=== PATIENT | male | born 1995 | race Caucasian/White ===

== ENCOUNTER 2017-06-14 15:13 | Emergency (ER) | payer SELFPAY ==
[2017-06-14 15:51] VITALS: BP 124/77
[2017-06-14] MEDS ORDERED: LIDOCAINE 1% INJ (10 MG/ML) 10 ML MDV INJ ONE (16:12)
[2017-06-14] MEDS ORDERED: MAG HYDROX/AL HYDROX/SIMETH SUSP 30 ML UDCUP PO ONE (16:12)
[2017-06-14] MEDS ORDERED: NORMAL SALINE 1000 ML 1,000 ML IV ONE (16:12)
[2017-06-14] MEDS ORDERED: ONDANSETRON 4 MG TAB.RAPDIS PO ONE (16:12)
--- NOTE | 2017-06-14 16:13 | ER Document Report ---
ED Medical Screen (RME) - General TRAVEL OUTSIDE OF THE [place] IN LAST 30 DAYS: No <RHIANNA MCGRAW - Last Filed: 06/14/17 16:13> <OSWALDO KRAMER - Last Filed: 06/14/17 20:12> - General Chief Complaint: Vomiting Stated Complaint: VOMITING BLOOD Time Seen by Provider: 06/14/17 16:06 Notes: 22-year-old male patient reports waking up about 3 AM with reflux and heartburn, . He tried to drink some water and then vomited and has continued to vomit. He has vomited 7-8 times a day. He had diarrhea once. At this time he has diffuse abdominal pain and epigastric tenderness and right and left lower quadrant abdominal tenderness. He is somewhat tachycardic. I have greeted and performed a rapid initial assessment of this patient. A comprehensive ED assessment and evaluation of the patient, analysis of test results and completion of the medical decision making process will be conducted by additional ED providers. (RHIANNA MCGRAW) - Related Data Allergies/Adverse Reactions: No Known Allergies Allergy (Verified 06/14/17 15:14) Past Medical History - Social History Frequency of alcohol use: Occasional Drug Abuse: None Pulmonary Medical History: Reports: Hx Asthma - Sports Induced Renal/ Medical History: Denies: Hx Peritoneal Dialysis Past Surgical History: Reports: Hx Myringotomy - child hoood - Immunizations Hx Diphtheria, Pertussis, Tetanus Vaccination: Yes <RHIANNA MCGRAW - Last Filed: 06/14/17 16:13> - Vital signs Vitals: Temp Pulse Resp BP Pulse Ox 98.8 F 128 H 20 124/77 99 06/14/17 15:49 06/14/17 15:49 06/14/17 15:49 06/14/17 15:49 06/14/17 15:49 Course - Laboratory Result Diagrams: 06/14/17 16:32 06/14/17 16:32 <OSWALDO KRAMER - Last Filed: 06/14/17 20:12> - Vital Signs Vital signs: Temp Pulse Resp BP Pulse Ox 98.8 F 128 H 20 124/77 99 06/14/17 15:49 06/14/17 15:49 06/14/17 15:49 06/14/17 15:49 12/31/17 15:49 - Laboratory Laboratory results interpreted by me: 06/14/17 06/14/17 16:32 16:32 WBC 13.7 H RBC 6.09 H Hgb 18.6 H Hct 55.0 H Seg Neuts % (Manual) 81 H Lymphocytes % (Manual) 5 L Abs Neuts (Manual) 11.6 H Carbon Dioxide 33 H Doctor's Discharge <RHIANNA MCGRAW - Last Filed: 06/14/17 16:13> <OSWALDO KRAMER - Last Filed: 06/14/17 20:12> - Discharge Clinical Impression: Gastroenteritis, Dehydration Condition: Stable Disposition: HOME, SELF-CARE Instructions: Antinausea Medication ([facility]), Clear Liquid Diet ([facility]), Gastroenteritis (adult) ([facility]), Intravenous (IV) Fluids ([facility]) Additional Instructions: CLEAR LIQUID DIET UNTIL APPETITE RETURNS, THEN GRADUALLY ADVANCE DIET. YOU MAY TAKE ZOFRAN DIRECTED, IF NEEDED FOR NAUSEA CONTROL. FOLLOW UP WITH YOUR PRIMARY CARE PROVIDER OR RETURN TO E.R. IF PROBLEMS. Prescriptions: Ondansetron [Zofran Odt 4 mg Tablet] 1 - 2 tab PO Q4H #10 tab.jana
[2017-06-14] MEDS ORDERED: LIDOCAINE 2% VISCOUS SOLN 20 ML UDCUP PO ONE (16:39)
[2017-06-14] MEDS ORDERED: LIDOCAINE 1% INJ-PF (10 MG/ML) 30 ML SDV INJ ONE (16:45)
[2017-06-14 16:51] LABS: APPEARANCE,URINE CLEAR; BILIRUBIN,URINE NEGATIVE (NEGATIVE); COLOR,URINE YELLOW; GLUCOSE, URINE NEGATIVE (NEGATIVE); KETONES,URINE NEGATIVE (NEGATIVE); LEUKOCYTE ESTERASE,URINE NEGATIVE (NEGATIVE); NITRITE,URINE NEGATIVE (NEGATIVE); PROTEIN,URINE NEGATIVE (NEGATIVE); URINE SPECIFIC GRAVITY 1.019; UROBILINOGEN,URINE NEGATIVE mg/dL (<2.0)
[2017-06-14 17:01] LABS: HEMOGLOBIN 18.6 g/dL (13.5-17.0); MEAN CORPUSCULAR HEMOGLOBIN 30.6 pg (27.0-33.4); MEAN CORPUSCULAR HGB CONC 33.9 g/dL (32.0-36.0); MEAN CORPUSCULAR VOLUME 90 fl (80-97); PLATELET COUNT 220 10^3/uL (150-450); RED BLOOD COUNT 6.09 10^6/uL (4.35-5.55); WHITE BLOOD COUNT 13.7 10^3/uL (4.0-10.5)
[2017-06-14 17:06] LABS: ALANINE AMINOTRANSFERASE 43 U/L (21-72); ALBUMIN 4.5 g/dL (3.5-5.0); ALKALINE PHOSPHATASE 53 U/L (38-126); ANION GAP 8 (5-19); ASPARTATE AMINO TRANSFERASE 28 U/L (17-59); BILIRUBIN,DIRECT 0.3 mg/dL (0.0-0.4); BILIRUBIN,TOTAL 0.8 mg/dL (0.2-1.3); BLOOD UREA NITROGEN 14 mg/dL (7-20); CALCIUM 10.1 mg/dL (8.4-10.2); CARBON DIOXIDE 33 mmol/L (22-30); CHLORIDE 100 mmol/L (98-107); GLUCOSE 104 mg/dL (75-110); LIPASE 51.6 U/L (23-300); POTASSIUM 4.4 mmol/L (3.6-5.0); TOTAL PROTEIN 7.4 g/dL (6.3-8.2)
[2017-06-14 17:32] LABS: ABSOLUTE LYMPHOCYTES# (MANUAL) 1.2 10^3/uL (0.5-4.7); ABSOLUTE MONOCYTES # (MANUAL) 0.7 10^3/uL (0.1-1.4); ABSOLUTE NEUTROPHILS# (MANUAL) 11.6 10^3/uL (1.7-8.2); BAND NEUTROPHILS % (MANUAL) 4 % (3-5); BASOPHILS % (MANUAL) 0 % (0-2); EOSINOPHILS % (MANUAL) 1 % (0-6); LYMPHOCYTES % (MANUAL) 5 % (13-45); MONOCYTES % (MANUAL) 5 % (3-13); PLATELET COMMENT ADEQUATE; SEGMENTED NEUTROPHILS % (MAN) 81 % (42-78); TOTAL CELLS COUNTED 100; TOXIC VACUOLATION PRESENT
[2017-06-14] MEDS ORDERED: DEXTROSE 5%-LACTATED RINGERS 1,000 ML IV ONE (17:37)
--- NOTE | 2017-06-14 18:55 | ER Document Report ---
ED GI/ - General Chief Complaint: Vomiting Stated Complaint: VOMITING BLOOD Time Seen by Provider: 06/14/17 16:06 Mode of Arrival: Ambulatory Information source: Patient TRAVEL OUTSIDE OF THE [place] IN LAST 30 DAYS: No - HPI Patient complains to provider of: Vomiting Onset: This morning - 3 AM Timing/Duration: Sudden Quality of pain: Cramping Severity at maximum: Severe Severity in ED: Mild Context: Bad food - MAYBE Location: Epigastric, LLQ, RLQ Associated symptoms: Blood in emesis, Diarrhea, Nausea, Vomiting. denies: Chills, Fever Exacerbated by: Denies Relieved by: Denies Similar symptoms previously: No Recently seen / treated by doctor: No - Related Data Allergies/Adverse Reactions: No Known Allergies Allergy (Verified 06/14/17 15:14) Past Medical History - General Information source: Patient - Social History Smoking Status: Current Every Day Smoker Cigarette use (# per day): Yes Chew tobacco use (# tins/day): No Frequency of alcohol use: Occasional - LAST 2 d AGO Drug Abuse: None Lives with: Family Family History: Reviewed & Not Pertinent Patient has suicidal ideation: No Patient has homicidal ideation: No - Past Medical History Cardiac Medical History: Reports: None Pulmonary Medical History: Reports: Hx Asthma - Sports Induced EENT Medical History: Reports: None Neurological Medical History: Reports: None Endocrine Medical History: Reports: None Renal/ Medical History: Reports: None. Denies: Hx Peritoneal Dialysis Malignancy Medical History: Reports None GI Medical History: Reports: None. Denies: Hx Cirrhosis, Hx Gastritis, Hx Hepatitis, Hx Pancreatitis Musculoskeltal Medical History: Reports None Psychiatric Medical History: Reports: None Surgical Hx: Negative Past Surgical History: Reports: Hx Myringotomy - child hoood - Immunizations Hx Diphtheria, Pertussis, Tetanus Vaccination: Yes Review of Systems - Review of Systems Constitutional: Weakness EENT: No symptoms reported Cardiovascular: No symptoms reported Respiratory: No symptoms reported Gastrointestinal: See HPI Genitourinary: No symptoms reported Musculoskeletal: No symptoms reported Skin: No symptoms reported Neurological/Psychological: No symptoms reported Physical Exam - Vital signs Vitals: Temp Pulse Resp BP Pulse Ox 98.8 F 128 H 20 124/77 99 06/14/17 15:49 06/14/17 15:49 06/14/17 15:49 06/14/17 15:49 06/14/17 15:49 Interpretation: Tachycardic. No: Hypotensive, Hypertensive, Tachypneic - General General appearance: Appears well, Alert In distress: None - HEENT Head: Normocephalic Eyes: Normal. No: Pale conjunctiva Conjunctiva: Normal. No: Icteric Ears: Normal Mouth/Lips: Normal Mucous membranes: Dry Pharynx: Erythema - MILD, DIFFUSE Neck: Normal - Respiratory Respiratory status: No respiratory distress Breath sounds: Normal - Cardiovascular Rhythm: Regular, Tachycardia Heart sounds: Normal auscultation Murmur: No - Abdominal Inspection: Normal Distension: No distension Bowel sounds: Hypoactive Tenderness: Tender - MILD, GENERALIZED, MORE IN EPIGASTRIUM - Back Back: Normal - Extremities General upper extremity: Normal inspection General lower extremity: Normal inspection - Neurological Neuro grossly intact: Yes Cognition: Normal Orientation: AAOx4 - Psychological Associated symptoms: Normal affect, Normal mood - Skin Skin Temperature: Warm Skin Moisture: Dry Skin Color: Normal Skin Turgor: Elastic Course - Vital Signs Vital signs: Temp Pulse Resp BP Pulse Ox 98.8 F 128 H 20 124/77 99 06/14/17 15:49 06/14/17 15:49 06/14/17 15:49 06/14/17 15:49 06/14/17 15:49 - Laboratory Result Diagrams: 06/14/17 16:32 06/14/17 16:32 Laboratory results interpreted by me: 06/14/17 06/14/17 16:32 16:32 WBC 13.7 H RBC 6.09 H Hgb 18.6 H Hct 55.0 H Seg Neuts % (Manual) 81 H Lymphocytes % (Manual) 5 L Abs Neuts (Manual) 11.6 H Carbon Dioxide 33 H Discharge - Discharge Clinical Impression: Gastroenteritis, Dehydration Condition: Stable Disposition: HOME, SELF-CARE Instructions: Antinausea Medication ([facility]), Clear Liquid Diet ([facility]), Gastroenteritis (adult) ([facility]), Intravenous (IV) Fluids ([facility]) Additional Instructions: CLEAR LIQUID DIET UNTIL APPETITE RETURNS, THEN GRADUALLY ADVANCE DIET. YOU MAY TAKE ZOFRAN DIRECTED, IF NEEDED FOR NAUSEA CONTROL. FOLLOW UP WITH YOUR PRIMARY CARE PROVIDER OR RETURN TO E.R. IF PROBLEMS. Prescriptions: Ondansetron [Zofran Odt 4 mg Tablet] 1 - 2 tab PO Q4H #10 tab.rapdis
[2017-06-14] MEDS ORDERED: NORMAL SALINE 1000 ML 2,000 ML IV ONE (19:05)
[2017-06-14] MEDS ORDERED: ONDANSETRON ODT 4 MG TAB (6 TAB/ER DISP) PO PRN (20:03)
== END 2017-06-14 20:24 | disposition home or self-care (01) ==
LOC: ER 15:13
DX: K52.9 Noninfective gastroenteritis and colitis, unspecified (principal); E86.0 Dehydration; R10.13 Epigastric pain; R10.31 Right lower quadrant pain; R10.32 Left lower quadrant pain; R11.2 Nausea with vomiting, unspecified; F17.200 Nicotine dependence, unspecified, uncomplicated
CPT/HCPCS: 99284; 96360; 96361; 36415; 83690; 85025; 80053; 81001; S0119; J3490; J7030

== ENCOUNTER 2017-09-19 18:55 | Emergency (ER) | payer SELFPAY ==
[2017-09-19 19:06] VITALS: BP 135/82
[2017-09-19] MEDS ORDERED: ONDANSETRON 4 MG TAB.RAPDIS PO ONE (19:25)
--- NOTE | 2017-09-19 19:30 | ER Document Report ---
ED General - General Chief Complaint: Nausea/Vomiting/Diarrhea Stated Complaint: VOMITING Time Seen by Provider: 09/19/17 19:20 Notes: 22-year-old male here with complaints of nausea vomiting diarrhea ongoing for the past few hours. He states that the symptoms started after he ate an egg and cheese bagel that he made at home. No one else ate the same food. He has not tried taking anything for the symptoms. No known sick contacts. TRAVEL OUTSIDE OF THE [place] IN LAST 30 DAYS: No - Related Data Allergies/Adverse Reactions: No Known Allergies Allergy (Verified 09/19/17 19:00) Past Medical History - Social History Smoking Status: Current Every Day Smoker Chew tobacco use (# tins/day): No Frequency of alcohol use: Occasional Drug Abuse: Marijuana Family History: Reviewed & Not Pertinent Patient has suicidal ideation: No Patient has homicidal ideation: No Pulmonary Medical History: Reports: Hx Asthma - Sports Induced Renal/ Medical History: Denies: Hx Peritoneal Dialysis GI Medical History: Denies: Hx Cirrhosis, Hx Gastritis, Hx Hepatitis, Hx Pancreatitis Infectious Medical History: Denies: Hx Hepatitis Past Surgical History: Reports: Hx Myringotomy - child hoood - Immunizations Hx Diphtheria, Pertussis, Tetanus Vaccination: Yes Review of Systems - Review of Systems Notes: See history of present illness for pertinent positive review of systems; otherwise all review of systems have been reviewed and are negative Physical Exam - Vital signs Vitals: Temp Pulse Resp BP Pulse Ox 98.4 F 75 16 135/82 H 97 09/19/17 19:03 09/19/17 19:03 09/19/17 19:03 09/19/17 19:03 09/19/17 19:03 - Notes Notes: PHYSICAL EXAMINATION: GENERAL: Well-appearing and in no acute distress. HEAD: Atraumatic, normocephalic. EYES: Pupils equal round and reactive to light, extraocular movements intact, sclera anicteric, conjunctiva are normal. ENT: nares patent, oropharynx clear without exudates. Moist mucous membranes. NECK: Normal range of motion, supple without lymphadenopathy LUNGS: CTAB and equal. No wheezes rales or rhonchi. HEART: Regular rate and rhythm without murmurs ABDOMEN: Soft, no tenderness. No facial grimacing/wincing upon palpation. No guarding, no rebound. EXTREMITIES: Normal range of motion, no pitting edema. No cyanosis. NEUROLOGICAL: Cranial nerves grossly intact. Normal sensory/motor exams. PSYCH: Normal mood, normal affect. SKIN: Warm, Dry, normal turgor, no rashes or lesions noted Course - Re-evaluation Re-evalutation: 09/19/17 19:29 MEDICAL DECISION MAKING: Concern for gastrointestinal infection, most likely viral A dose of Zofran here and home with prescription for same Instructed patient on fever control with Tylenol and/or (if applicable) Motrin Also discussed keeping hydrated with water or Gatorade/Pedialyte Instructed follow-up PCP next day or few Patient understands and agrees to the plan of care - Vital Signs Vital signs: Temp Pulse Resp BP Pulse Ox 98.4 F 75 16 135/82 H 97 09/19/17 19:03 09/19/17 19:03 09/19/17 19:03 09/19/17 19:03 09/19/17 19:03 Discharge - Discharge Clinical Impression: Nausea vomiting and diarrhea Condition: Good Disposition: HOME, SELF-CARE Additional Instructions: You were seen in the emergency department at [facility]. You likely have a gastrointestinal infection, most likely viral. Use Motrin and/or Tylenol for fever control. You may use saline nasal spray for stuffy nose. Stay hydrated. Please followup with your primary physician in the next few days for further management/evaluation. Please return to the emergency department for worsening of symptoms or any symptom that you deem to be concerning or life-threatening. Thank you for allowing us to be part of your care. This is your school/work note for your Emergency Department evaluation today. Prescriptions: Ondansetron [Zofran Odt 4 mg Tablet] 1 tab PO Q4HP PRN #15 tab.rapdis PRN Reason: For Nausea/Vomiting
== END 2017-09-19 19:30 | disposition home or self-care (01) ==
LOC: ER 18:55
DX: R11.2 Nausea with vomiting, unspecified (principal); R19.7 Diarrhea, unspecified; F17.200 Nicotine dependence, unspecified, uncomplicated; J45.909 Unspecified asthma, uncomplicated
CPT/HCPCS: 99283; S0119

== ENCOUNTER 2018-02-05 16:09 | Emergency (ER) | payer SELFPAY ==
[2018-02-05 16:17] VITALS: BP 133/88
[2018-02-05] MEDS ORDERED: METOCLOPRAMIDE HCL ORAL SOLN 10 MG/10 ML UDCUP PO ONE (16:59)
[2018-02-05] MEDS ORDERED: LIDOCAINE 2% VISCOUS SOLN 20 ML UDCUP PO ONE (16:59)
[2018-02-05] MEDS ORDERED: MAG HYDROX/AL HYDROX/SIMETH SUSP 30 ML UDCUP PO ONE (16:59)
--- NOTE | 2018-02-05 17:10 | ER Document Report ---
ED Medical Screen (RME) - General Chief Complaint: Vomiting Stated Complaint: VOMITING, POSSIBLE RASH Time Seen by Provider: 02/05/18 16:59 Mode of Arrival: Ambulatory Information source: Patient TRAVEL OUTSIDE OF THE [place] IN LAST 30 DAYS: No - HPI Patient complains to provider of: Reflux Onset: Other - 22-year-old man presents with 2 days of acid taste in the base of his mouth as well as reflux symptoms which he says caused him to vomit twice with resultant red spots developing on his face. He denies any abdominal pain diarrhea constipation or dysuria fevers chills he does note that he generally has acid reflux at baseline he was drinking yesterday as well as being an every day smoker. Does not take anything to try and help with this he did take a little bit of Pepto-Bismol which is abnormal for him which offered only minimal relief. - Related Data Allergies/Adverse Reactions: No Known Allergies Allergy (Verified 09/19/17 19:00) Past Medical History - General Information source: Patient - Social History Cigarette use (# per day): Yes Chew tobacco use (# tins/day): Yes Frequency of alcohol use: Social Drug Abuse: Marijuana Pulmonary Medical History: Reports: Hx Asthma - Sports Induced Renal/ Medical History: Denies: Hx Peritoneal Dialysis GI Medical History: Denies: Hx Cirrhosis, Hx Gastritis, Hx Hepatitis, Hx Pancreatitis Infectious Medical History: Denies: Hx Hepatitis Past Surgical History: Reports: Hx Myringotomy - child hoood - Immunizations Hx Diphtheria, Pertussis, Tetanus Vaccination: Yes Review of Systems - Review of Systems -: Yes All other systems reviewed and negative Physical Exam - Vital signs Vitals: Temp Pulse Resp BP Pulse Ox 98.4 F 83 18 133/88 H 98 02/05/18 16:16 02/05/18 16:16 02/05/18 16:16 02/05/18 16:16 02/05/18 16:16 - General General appearance: Appears well In distress: None - HEENT Head: Normocephalic Eyes: Normal Conjunctiva: Normal Cornea: Normal Anterior chamber: Normal Fundascopic: Normal External canal: Normal Pharynx: Normal Neck: Normal - Respiratory Respiratory status: No respiratory distress Chest status: Nontender Breath sounds: Normal Chest palpation: Normal - Cardiovascular Rhythm: Regular Heart sounds: Normal auscultation Murmur: No - Abdominal Inspection: Normal Distension: No distension Tenderness: Nontender - Back Back: Normal - Extremities General upper extremity: Normal inspection General lower extremity: Normal inspection Shoulder: Normal - Neurological Neuro grossly intact: Yes Cognition: Normal Orientation: AAOx4 - Psychological Associated symptoms: Normal affect Course - Re-evaluation Re-evalutation: 02/05/18 19:32 22-year-old male who presents for evaluation of 2 episodes of emesis in the setting of having what he describes as reflux. On examination his abdominal exam is benign, he is well-appearing has been able to tolerate p.o. today. He is otherwise healthy he is an everyday drinker and an everyday smoker. Given that he does have a history of acid reflux this seems like an exacerbation of his underlying baseline reflux will attempt p.o. challenge following GI cocktail. Following administration of GI cocktail this patient's abdominal examination remained benign he was able to tolerate p.o. and remained well-appearing. He did have a few scattered petechiae on his face likely as a result of his retching do not believe this is indication at this time for further investigation. We will plan for this patient to undergo discharge with return precautions and a prescription for PPI. - Vital Signs Vital signs: Temp Pulse Resp BP Pulse Ox 98.4 F 83 18 133/88 H 98 02/05/18 16:16 02/05/18 16:16 02/05/18 16:16 02/05/18 16:16 02/05/18 16:16 Doctor's Discharge - Discharge Clinical Impression: Reflux esophagitis, Vomiting Condition: Good Disposition: HOME, SELF-CARE Instructions: Antacid Therapy ([facility]), Antinausea Medication ([facility]), Esophagitis ( [facility]) Prescriptions: Omeprazole Magnesium [Prilosec Otc] 40 mg PO BID #40 tablet. Ondansetron [Zofran Odt 4 mg Tablet] 1 - 2 tab PO Q4H PRN #15 tab.rapdis PRN Reason: For Nausea/Vomiting Forms: Smoking Cessation Education, Return to Work
== END 2018-02-05 19:45 | disposition home or self-care (01) ==
LOC: ER 16:09
DX: K21.0 Gastro-esophageal reflux disease with esophagitis (principal); R11.10 Vomiting, unspecified; R23.3 Spontaneous ecchymoses; F17.210 Nicotine dependence, cigarettes, uncomplicated; F12.10 Cannabis abuse, uncomplicated; J45.909 Unspecified asthma, uncomplicated
CPT/HCPCS: 99282; J3490

== ENCOUNTER 2018-03-20 00:24 | Emergency (ER) | payer SELFPAY ==
[2018-03-20 00:39] VITALS: BP 130/83
[2018-03-20] MEDS ORDERED: ACETAMINOPHEN 325 MG TABLET PO ONE (00:57)
[2018-03-20] MEDS ORDERED: IBUPROFEN 600 MG TABLET PO ONE (00:57)
--- NOTE | 2018-03-20 01:04 | ER Document Report ---
ED General - General Chief Complaint: Scrotal Pain, Acute Onset Stated Complaint: GROIN PAIN Time Seen by Provider: 03/20/18 00:52 Notes: Patient is a 22-year-old male without chronic medical problems who presents with bilateral testicular pain. Patient states that he was at work, took a corner too quickly and struck his testicles on a glass hernandez. This is apparently advised to hold glasses while they are being cleaned and a welt edge rounder. He describes a dull, throbbing, constant pain to his bilateral testicles. Nothing improves or worsens the pain. He states the pain was so severe initially that he almost passed out and has felt shaky since that time which is what prompted him to come to the emergency department for further assessment. No history of similar injury in the past. He has urinated has not noted any gross hematuria. Pain and symptoms have overall been improving since onset. TRAVEL OUTSIDE OF THE [place] IN LAST 30 DAYS: No - Related Data Allergies/Adverse Reactions: No Known Allergies Allergy (Verified 09/19/17 19:00) Past Medical History - General Information source: Patient - Social History Smoking Status: Current Every Day Smoker Frequency of alcohol use: Occasional Drug Abuse: None Family History: Reviewed & Not Pertinent Pulmonary Medical History: Reports: Hx Asthma - Sports Induced Renal/ Medical History: Denies: Hx Peritoneal Dialysis GI Medical History: Denies: Hx Cirrhosis, Hx Gastritis, Hx Hepatitis, Hx Pancreatitis Infectious Medical History: Denies: Hx Hepatitis Past Surgical History: Reports: Hx Myringotomy - child hoood - Immunizations Hx Diphtheria, Pertussis, Tetanus Vaccination: Yes Review of Systems - Review of Systems Notes: Constitutional: Negative for fever. HENT: Negative for sore throat. Eyes: Negative for visual changes. Cardiovascular: Negative for chest pain. Respiratory: Negative for shortness of breath. Gastrointestinal: Negative for abdominal pain, vomiting or diarrhea. Genitourinary: Positive for testicular pain Musculoskeletal: Negative for back pain. Skin: Negative for rash. Neurological: Negative for headaches, weakness or numbness. 10 point ROS negative except as marked above and in HPI. Physical Exam - Vital signs Vitals: Temp Pulse Resp BP Pulse Ox 98.8 F 93 18 130/83 H 98 03/20/18 00:37 03/20/18 00:37 03/20/18 00:37 03/20/18 00:37 03/20/18 00:37 Interpretation: Normal Notes: PHYSICAL EXAMINATION: GENERAL: Well-appearing, well-nourished and in no acute distress. HEAD: Atraumatic, normocephalic. EYES: Pupils equal round and reactive to light, extraocular movements intact, sclera anicteric, conjunctiva are normal. ENT: nares patent, oropharynx clear without exudates. Moist mucous membranes. NECK: Normal range of motion, supple without lymphadenopathy LUNGS: Breath sounds clear to auscultation bilaterally and equal. No wheezes rales or rhonchi. HEART: Regular rate and rhythm without murmurs ABDOMEN: Soft, nontender, normoactive bowel sounds. No guarding, no rebound. No masses appreciated. : Positive cremasteric reflex bilaterally, no swelling or edema of the scrotum. Mild pain to the testes bilaterally on palpation. No scrotal hematoma. No evidence of penile trauma. EXTREMITIES: Normal range of motion, no pitting or edema. No cyanosis. NEUROLOGICAL: No focal neurological deficits. Moves all extremities spontaneously and on command. PSYCH: Normal mood, normal affect. SKIN: Warm, Dry, normal turgor, no rashes or lesions noted. Course - Re-evaluation Re-evalutation: 03/20/18 01:14 Patient is a 22-year-old male presenting with testicular pain. Testicular exam without any obvious bruising, swelling or edema of the testes, epididymis or scrotum. No penile trauma or bruising. It appears that the patient likely had significant vagal response from a direct testicular traumatic events while at work. Scrotal ultrasound likewise without any evidence of scrotal or testicular hematoma or notable traumatic injury. At this time will discharge with return precautions and follow-up recommendations. Verbal discharge instructions given a the bedside and opportunity for questions given. Medication warnings reviewed. Patient is in agreement with this plan and has verbalized understanding of return precautions and the need for primary care follow-up in the next 24-72 hours. - Vital Signs Vital signs: Temp Pulse Resp BP Pulse Ox 98.8 F 93 18 130/83 H 98 03/20/18 00:37 03/20/18 00:37 03/20/18 00:37 03/20/18 00:37 03/20/18 00:37 - Diagnostic Test Radiology reviewed: Reports reviewed Discharge - Discharge Clinical Impression: Testicular/scrotal pain Condition: Good Disposition: HOME, SELF-CARE Additional Instructions: Your seen today for testicular pain after traumatic injury. Your ultrasound is normal as is your exam. Return if you have worsening pain, persistent vomiting , or any other symptoms that are worrisome to you.
--- NOTE | 2018-03-20 03:24 | RADIOLOGY REPORT (SQ) ---
EXAM DESCRIPTION: US SCROTUM COMPLETED DATE/TME: 03/20/2018 00:57 CLINICAL HISTORY: 22 years Male, testicular trauma COMPARISON: None. TECHNIQUE: Real-time sonographic images of the scrotal contents obtained using a linear multi hertz transducer. Color and spectral Doppler imaging was also obtained. FINDINGS: Testicles: The right testicle measures 5.0 x 4.0 x 2.3 cm. The left testicle measures 4.9 x 3.5 x 2.5 cm. No solid intratesticular mass identified. Homogenous echogenicity of the testicles. Epididymis: No abnormalities of the right epididymis. Small left epididymal cyst. Hydrocele: Small left hydrocele Blood flow:Normal arterial and venous blood flow identified bilaterally. Other:No additional findings. IMPRESSION: 1. Normal blood flow identified bilaterally. 2. Small left hydrocele. No traumatic parenchymal injury of the testicles identified.
== END 2018-03-20 03:43 | disposition home or self-care (01) ==
LOC: ER 00:24
DX: N50.82 Scrotal pain (principal); N50.812 Left testicular pain; N50.811 Right testicular pain; F17.200 Nicotine dependence, unspecified, uncomplicated; J45.909 Unspecified asthma, uncomplicated
CPT/HCPCS: 76870; 93976; 99284

== ENCOUNTER 2018-06-02 02:58 | Emergency (ER) | payer SELFPAY ==
[2018-06-02 03:13] VITALS: BP 114/66
[2018-06-02] MEDS ORDERED: ONDANSETRON HCL INJ/PF 4 MG/2 ML SDV IV ONE (03:29)
--- NOTE | 2018-06-02 03:30 | ER Document Report ---
ED General - General Chief Complaint: Nausea/Vomiting Stated Complaint: VOMITING Time Seen by Provider: 06/02/18 03:29 Notes: 23-year-old male to the emergency department by ambulance because he is vomiting. Patient states that he has been drinking beer all night. Cannot seem to stop vomiting. Denies any trauma. Denies any significant abdominal pain, chest pain or other issues at this time. TRAVEL OUTSIDE OF THE [place] IN LAST 30 DAYS: No - HPI Onset: Just prior to arrival Quality of pain: No pain Severity: Mild Pain Level: Denies Associated symptoms: None - Related Data Allergies/Adverse Reactions: No Known Allergies Allergy (Verified 09/19/17 19:00) Past Medical History - General Information source: Patient - Social History Smoking Status: Current Every Day Smoker Chew tobacco use (# tins/day): No Frequency of alcohol use: Heavy Drug Abuse: None Lives with: Family Family History: Reviewed & Not Pertinent Patient has suicidal ideation: No Patient has homicidal ideation: No Pulmonary Medical History: Reports: Hx Asthma - Sports Induced Renal/ Medical History: Denies: Hx Peritoneal Dialysis GI Medical History: Denies: Hx Cirrhosis, Hx Gastritis, Hx Hepatitis, Hx Pancreatitis Infectious Medical History: Denies: Hx Hepatitis Past Surgical History: Reports: Hx Myringotomy - child hoood - Immunizations Hx Diphtheria, Pertussis, Tetanus Vaccination: Yes Review of Systems - Review of Systems Notes: Constitutional: denies: Chills, Diaphoresis, Fever, Malaise, Weakness EENT: denies: Eye discharge, Blurred vision, Tearing, Double vision, Nose congestion, Nose discharge, Throat swelling, Mouth pain Cardiovascular: denies: Palpitations, Heart racing, Orthopnea, Dyspnea, Chest pain Respiratory: denies: Cough, Hurts to breathe, Wheezing, Shortness of breath Gastrointestinal: denies: Abdominal pain, Diarrhea, Black stools, bright red blood in stool. + for N/V Genitourinary: denies: Burning, Dysuria, Discharge, Frequency, Flank pain, Hematuria Musculoskeletal: denies: Joint pain, Joint swelling, Muscle pain, Muscle stiffness, back pain Hematologic/Lymphatic: denies: Anemia, Easy bleeding, Easy bruising, Blood clots Neurological/Psychological: denies: Confusion, Dementia, Depression, Loss of consciousness Skin: No lesions, no masses, no skin breakdown, no abscesses Physical Exam - Vital signs Vitals: Temp Pulse Resp BP Pulse Ox 98.1 F 74 18 114/66 99 06/02/18 03:05 06/02/18 03:05 06/02/18 03:05 06/02/18 03:05 06/02/18 03:05 Interpretation: Normal - General General appearance: Appears well, Alert - HEENT Head: Normocephalic, Atraumatic Eyes: Normal Pupils: PERRL - Respiratory Respiratory status: No respiratory distress Chest status: Nontender Breath sounds: Normal Chest palpation: Normal - Cardiovascular Rhythm: Regular Heart sounds: Normal auscultation Murmur: No - Abdominal Inspection: Normal Distension: No distension Bowel sounds: Normal Tenderness: Nontender Organomegaly: No organomegaly - Back Back: Normal, Nontender - Extremities General upper extremity: Normal inspection, Nontender, Normal color, Normal ROM, Normal temperature General lower extremity: Normal inspection, Nontender, Normal color, Normal ROM, Normal temperature, Normal weight bearing. No: Moiz's sign - Neurological Neuro grossly intact: Yes Cognition: Normal Orientation: AAOx4 [place] Coma Scale Eye Opening: Spontaneous [place] Coma Scale Verbal: Oriented [place] Coma Scale Motor: Obeys Commands Speech: Normal Motor strength normal: LUE, RUE, LLE, RLE Sensory: Normal - Psychological Associated symptoms: Normal affect, Normal mood - Skin Skin Temperature: Warm Skin Moisture: Dry Skin Color: Normal Course - Re-evaluation Re-evalutation: 06/02/18 03:53 Well-appearing male in no acute distress. Likely having some vomiting from the alcohol. We will get an alcohol level, give some IV fluids and reassess. 06/02/18 06:39 Patient has been resting comfortably. Alcohol level 150. Nothing further at this time. Will DC in stable condition. - Vital Signs Vital signs: Temp Pulse Resp BP Pulse Ox 98.1 F 74 18 114/66 99 06/02/18 03:05 06/02/18 03:05 06/02/18 03:05 06/02/18 03:05 06/02/18 03:05 Discharge - Discharge Clinical Impression: Intoxication Alcoholic gastritis Qualifiers: Chronicity: acute Gastritis bleeding: without bleeding Qualified Code(s): K29.20 - Alcoholic gastritis without bleeding Condition: Good Disposition: HOME, SELF-CARE Instructions: Acute Alcohol Intoxication ([facility]) Forms: Return to Work
[2018-06-02] MEDS: NORMAL SALINE 1000 ML 1,000 ML IV PRN ×2 (03:36→03:37)
[2018-06-02] MEDS ORDERED: FAMOTIDINE INJ/PF 20 MG/2 ML SDV IV ONE ×2 (03:53→03:57)
== END 2018-06-02 06:38 | disposition home or self-care (01) ==
LOC: ER 02:58
DX: K29.20 Alcoholic gastritis without bleeding (principal); F10.129 Alcohol abuse with intoxication, unspecified; Y90.6 Blood alcohol level of 120-199 mg/100 ml; R11.2 Nausea with vomiting, unspecified; F17.200 Nicotine dependence, unspecified, uncomplicated; J45.909 Unspecified asthma, uncomplicated; Z87.19 Personal history of other diseases of the digestive system
CPT/HCPCS: 99284; 96361; 96374; 96375; 36415; 80307; J2405; J7030; S0028

== ENCOUNTER 2018-06-20 18:06 | Emergency (ER) | payer SELFPAY ==
[2018-06-20] MEDS ORDERED: ACETAMINOPHEN 325 MG TABLET PO ONE (19:43)
[2018-06-20] MEDS ORDERED: ONDANSETRON 4 MG TAB.RAPDIS PO ONE (19:43)
--- NOTE | 2018-06-20 19:43 | ER Document Report ---
ED Medical Screen (RME) - General Chief Complaint: Nausea/Vomiting Stated Complaint: ABDOMINAL PAIN Time Seen by Provider: 06/20/18 19:42 Mode of Arrival: Ambulatory Information source: Patient TRAVEL OUTSIDE OF THE [place] IN LAST 30 DAYS: No - HPI Patient complains to provider of: Nausea and vomiting Onset: Other - This is a 22-year-old man that presents for evaluation of nausea and vomiting over the last day. He had a low-grade fever yesterday was burning upset while sitting at home but did not check his temperature at that time. Throughout probably twice was told by his work he needed to be seen by before he could come back to work. Denies any episodes of emesis today. Nothing is made his symptoms any better he is not take anything to try and help with the symptoms. - Related Data Allergies/Adverse Reactions: No Known Allergies Allergy (Verified 09/19/17 19:00) Past Medical History - General Information source: Patient - Social History Cigarette use (# per day): Yes Chew tobacco use (# tins/day): Yes Frequency of alcohol use: Occasional Drug Abuse: Marijuana Pulmonary Medical History: Reports: Hx Asthma - Sports Induced Renal/ Medical History: Denies: Hx Peritoneal Dialysis GI Medical History: Denies: Hx Cirrhosis, Hx Gastritis, Hx Hepatitis, Hx Pancreatitis Infectious Medical History: Denies: Hx Hepatitis Past Surgical History: Reports: Hx Myringotomy - child hoood - Immunizations Hx Diphtheria, Pertussis, Tetanus Vaccination: Yes Review of Systems - Review of Systems -: Yes All other systems reviewed and negative Physical Exam - Vital signs Vitals: Temp Pulse Resp BP Pulse Ox 98.8 F 86 16 134/80 H 97 06/20/18 18:11 06/20/18 18:11 06/20/18 18:11 06/20/18 18:11 06/20/18 18:11 Interpretation: Normal - General General appearance: Appears well, Alert - HEENT Head: Normocephalic, Atraumatic Eyes: Normal Pupils: PERRL - Respiratory Respiratory status: No respiratory distress Chest status: Nontender Breath sounds: Normal Chest palpation: Normal - Cardiovascular Rhythm: Regular Heart sounds: Normal auscultation Murmur: No - Abdominal Inspection: Normal Distension: No distension Bowel sounds: Normal Tenderness: Nontender Organomegaly: No organomegaly - Back Back: Normal, Nontender - Extremities General upper extremity: Normal inspection, Nontender, Normal color, Normal ROM, Normal temperature General lower extremity: Normal inspection, Nontender, Normal color, Normal ROM, Normal temperature, Normal weight bearing. No: Moiz's sign - Neurological Neuro grossly intact: Yes Cognition: Normal Orientation: AAOx4 [place] Coma Scale Eye Opening: Spontaneous [place] Coma Scale Verbal: Oriented [place] Coma Scale Motor: Obeys Commands [place] Coma Scale Total: 15 Speech: Normal Motor strength normal: LUE, RUE, LLE, RLE Sensory: Normal - Psychological Associated symptoms: Normal affect, Normal mood - Skin Skin Temperature: Warm Skin Moisture: Dry Skin Color: Normal Course - Re-evaluation Re-evalutation: 23 yo with nausea and vomiting who is improved today. He is well-appearing, has a benign abdominal examination states that he is feeling much much better already came only because he has C be seen for he can return to work. We will administer an antiemetic. Will p.o. challenge this patient. Following Zofran administration p.o. challenge and reassessment patient continues to have a benign abdominal examination. Because of his well appearance we will plan for discharge with return precautions. He was given smoking cessation counseling. - Vital Signs Vital signs: Temp Pulse Resp BP Pulse Ox 98.8 F 86 16 134/80 H 97 06/20/18 18:11 06/20/18 18:11 06/20/18 18:11 06/20/18 18:11 06/20/18 18:11 Doctor's Discharge - Discharge Clinical Impression: Nausea and vomiting Qualifiers: Vomiting type: unspecified Vomiting Intractability: unspecified Qualified Code(s): R11.2 - Nausea with vomiting, unspecified Condition: Good Disposition: HOME, SELF-CARE Instructions: Antinausea Medication ([facility]), Viral Syndrome ([facility]) Additional Instructions: You were seen today in the emergency department for your urine evaluation including a physical exam. I think that your illness is probably a viral illness. Make sure you are wearing something to cover your mouth in case you are having coughing, your throwing up you should not be handling food. You been given a prescription to help with nausea. Use the medication only as needed. Prescriptions: Ondansetron [Zofran Odt 4 mg Tablet] 1 - 2 tab PO Q4H PRN #15 tab.rapdis PRN Reason: For Nausea/Vomiting Forms: Return to Work
[2018-06-20 20:28] VITALS: BP 130/78
== END 2018-06-20 20:27 | disposition home or self-care (01) ==
LOC: ER 18:06
DX: R11.2 Nausea with vomiting, unspecified (principal); J45.909 Unspecified asthma, uncomplicated; Z72.0 Tobacco use; Z71.6 Tobacco abuse counseling
CPT/HCPCS: 99284; S0119

== ENCOUNTER 2019-07-27 07:32 | Emergency (ER) | payer SELFPAY ==
--- NOTE | 2019-07-27 10:30 | ER Document Report ---
HPI - HPI Patient complains to provider of: bilateral ear irritation Time Seen by Provider: 07/27/19 10:18 Onset: Other - one month Quality of pain: Achy Pain Level: Denies Context: 24-year-old male presents emergency department with complaints of bilateral ear irritation. He reports his ears were felt irritated for the past month. Clogged. He has been cleaning them with Q-tips. He noted some drainage after cleaning them with Q-tips. He reports he had tubes placed in his ears 3 times when he was growing up because he had such severe ear infections. He denies trauma. He denies fever vomiting diarrhea. Denies pain. Associated Symptoms: None Exacerbated by: Denies Relieved by: Denies Similar symptoms previously: No Recently seen / treated by doctor: No - CONSTITUTIONAL Constitutional: DENIES: Fever, Chills - EENT EENT: REPORTS: Ear Pain. DENIES: Sore Throat, Eye problems - NEURO Neurology: DENIES: Headache, Weakness, Vision blurred, Dizzinesss / Vertigo - CARDIOVASCULAR Cardiovascular: DENIES: Chest pain - RESPIRATORY Respiratory: DENIES: Trouble Breathing, Coughing - GASTROINTESTINAL Gastrointestinal: DENIES: Abdominal Pain, Black / Bloody Stools - URINARY Urinary: DENIES: Dysuria, Urgency, Frequency - REPRODUCTIVE Reproductive: DENIES: : - MUSCULOSKELETAL Musculoskeletal: DENIES: Extremity pain Past Medical History - General Information source: Patient - Social History Smoking Status: Current Every Day Smoker Cigarette use (# per day): Yes Frequency of alcohol use: None Drug Abuse: Marijuana Occupation: [employer] Family History: Reviewed & Not Pertinent Patient has suicidal ideation: No Patient has homicidal ideation: No Pulmonary Medical History: Reports: Hx Asthma - Sports Induced Renal/ Medical History: Denies: Hx Peritoneal Dialysis GI Medical History: Denies: Hx Cirrhosis, Hx Gastritis, Hx Hepatitis, Hx Pancreatitis Infectious Medical History: Denies: Hx Hepatitis Past Surgical History: Reports: Hx Myringotomy - child hoood - Immunizations Hx Diphtheria, Pertussis, Tetanus Vaccination: Yes Vertical Provider Document - CONSTITUTIONAL Agree With Documented VS: Yes Exam Limitations: No Limitations General Appearance: WD/WN, No Apparent Distress - INFECTION CONTROL TRAVEL OUTSIDE OF THE [place] IN LAST 30 DAYS: No - HEENT HEENT: Atraumatic, Normal ENT Exam, Normocephalic. negative: Conjuctival Injection, Tympanic Membrane Red, Tympanic Membrane Bulging - NECK Neck: Normal Inspection, Supple. negative: Lymphadenopathy-Left, Lymphadenopathy-Right - RESPIRATORY Respiratory: Breath Sounds Normal, No Respiratory Distress - CARDIOVASCULAR Cardiovascular: Regular Rate - MUSCULOSKELETAL/EXTREMETIES Musculoskeletal/Extremeties: WESLEY, YIMI - NEURO Level of Consciousness: Awake, Alert, Appropriate Motor/Sensory: No Motor Deficit - DERM Integumentary: Warm, Dry, No Rash Course - Re-evaluation Re-evalutation: 07/27/19 10:30 Bilateral ears with some wax but not impacted. No erythema no swelling no discharge. Patient was instructed on this. Instructed on ENT. He does not have insurance. He was instructed to follow-up with [facility] for evaluation and possibly referral to ENT. He was instructed to return here for severe pain or concerns. He verbalized understanding to all instructions. - Vital Signs Vital signs: Temp Pulse Resp BP Pulse Ox 97.9 F 79 18 140/93 H 97 07/27/19 07:36 07/27/19 07:36 07/27/19 07:36 07/27/19 07:36 07/27/19 07:36 Discharge - Discharge Clinical Impression: Irritation of both ears Condition: Stable Disposition: HOME, SELF-CARE Instructions: ENT, [facility] Additional Instructions: *You have been evaluated for bilateral ear irritation *Follow up with the [facility] within 1 week *Return to ED for worsening condition, changes, needs, fever ear pain, concerns Forms: Return to Work
[2019-07-27 10:47] VITALS: BP 146/90
== END 2019-07-27 10:44 | disposition home or self-care (01) ==
LOC: ER 07:32
DX: H92.03 Otalgia, bilateral (principal); F17.210 Nicotine dependence, cigarettes, uncomplicated

== ENCOUNTER 2020-01-03 12:18 | Emergency (ER) | payer OTHER ==
[2020-01-03 12:28] VITALS: BP 146/89
[2020-01-03] MEDS ORDERED: DIPH/PERTUSS(ACELL)/TETANUS VAC/PF 0.5 ML SYR (>=10YO) IM ONE (12:46)
[2020-01-03] MEDS ORDERED: LIDOCAINE 1%/EPINEPHRINE INJ 20 ML VIAL INJ ONE (12:46)
[2020-01-03] MEDS ORDERED: LIDOCAINE 4%/TETRACAINE 0.5%/EPI 0.18% 5 ML TOPICAL SOLN TOP ONE (12:51)
--- NOTE | 2020-01-03 12:51 | ER Document Report ---
HPI - HPI Time Seen by Provider: 01/03/20 12:41 Notes: 24-year-old male presents to the emergency room for evaluation of a laceration to his left calf that he accidentally sustained after his calf was caught on a nail coming out of a crawl space 2 hours ago. Unsure of his last tetanus. Denies any pain. No active bleeding. Able to walk on both legs without any issues. Able to bear full weight. Denies any numbness or tingling to area of injury. Denies any other area of injury. Is not on any blood thinners. Denies fevers, chills, chest pain,palpitations, shortness of breath, dyspnea, nausea, vomiting, diarrhea, abdominal pain, hematuria,blurred vision, double vision, loss of vision, speech changes, LH, dizziness, syncope, headaches, wheezing, ST, URI, neck pain, weakness, bowel or bladder dysfunction, saddle anesthesia, numbness or tingling in bilateral upper or lower extremities equally, muscle paralysis, weakness in bilateral upper or lower extremities equally or rash. Denies IV drug use. MEDICATIONS: I agree with the patient medications as charted by the RN. ALLERGIES: I agree with the allergies as charted by the RN. PAST MEDICAL HISTORY/PAST SURGICAL HISTORY: Reviewed and agree as charted by RN. SOCIAL HISTORY: Reviewed and agree as charted by RN. FAMILY HISTORY: No significant familial comorbid conditions directly related to patient complaint EXAM: Reviewed vital signs as charted by RN. REVIEW OF SYSTEMS:reviewed vital signs by RN CONSTITUTIONAL : Denies fever, chills, or sweats. Denies recent illness. EENT: Denies eye, ear, throat, or mouth pain or symptoms. Denies nasal or sinus congestion or discharge. Denies throat, tongue, or mouth swelling or difficulty swallowing. CARDIOVASCULAR: Denies chest pain. Denies palpitations or racing or irregular heart beat. Denies ankle edema. RESPIRATORY: Denies cough, cold, or chest congestion. Denies shortness of breath, difficulty breathing, or wheezing. GASTROINTESTINAL: Denies abdominal pain or distention. Denies nausea, vomiting, or diarrhea. Denies blood in vomitus, stools, or per rectum. Denies black, tarry stools. Denies constipation. GENITOURINARY: Denies difficulty urinating, painful urination, burning, frequency, blood in urine, or discharge. MUSCULOSKELETAL: Denies back or neck pain or stiffness. Denies joint pain or swelling. SKIN: reports left calf laceration. Denies rash, lesions or sores. HEMATOLOGIC : Denies easy bruising or bleeding. LYMPHATIC: Denies swollen, enlarged glands. NEUROLOGICAL: Denies confusion or altered mental status. Denies passing out or loss of consciousness. Denies dizziness or lightheadedness. Denies headache. Denies weakness or paralysis or loss of use of either side. Denies problems with gait or speech. Denies sensory loss, numbness, or tingling. Denies seizures. PSYCHIATRIC: Denies anxiety or stress. Denies depression, suicidal ideation, or homicidal ideation. ALL OTHER SYSTEMS REVIEWED AND NEGATIVE. Dictation was performed using [employer] voice recognition software PHYSICAL EXAMINATION: GENERAL: Well-appearing, well-nourished and in no acute distress. HEAD: Atraumatic, normocephalic. EYES: Pupils equal round and reactive to light, extraocular movements intact, sclera anicteric, conjunctiva are normal. ENT: Nares patent, oropharynx clear without exudates. Moist mucous membranes. NECK: Normal range of motion, supple without lymphadenopathy LUNGS: Breath sounds clear to auscultation bilaterally and equal. No wheezes rales or rhonchi. HEART: Regular rate and rhythm without murmurs ABDOMEN: Soft, nontender, nondistended abdomen. No guarding, no rebound. No masses appreciated. Musculoskeletal: Normal range of motion, no pitting or edema. No cyanosis. NEUROLOGICAL: Cranial nerves grossly intact. Normal speech, normal gait. Normal sensory, motor exams PSYCH: Normal mood, normal affect. SKIN: Warm, Dry, normal turgor, no rashes or lesions noted. Left posterior aspect of calf with a "V" laceration approximately 1 cm x 1 cm. negative efrain's sign. anterior and posterior drawer test negative.Dtr + 2 in BLE. Full motor and sensory function. distal pulses + 2 bilaterally and equally. Bilateral lower extremity without deformity or asymmetry. No STS or edema. No overlying erythema, warmth, discoloration. No lesions or break in the skin integrity. No evidence of compartment syndrome, lymphadenopathy, gangrene. No palpable cords or evidence of thrombophlebitis. - REPRODUCTIVE Reproductive: DENIES: : Past Medical History - General Information source: Patient - Social History Smoking Status: Unknown if Ever Smoked Family History: Reviewed & Not Pertinent Pulmonary Medical History: Reports: Hx Asthma - Sports Induced Renal/ Medical History: Denies: Hx Peritoneal Dialysis GI Medical History: Denies: Hx Cirrhosis, Hx Gastritis, Hx Hepatitis, Hx Pancreatitis Infectious Medical History: Denies: Hx Hepatitis Past Surgical History: Reports: Hx Myringotomy - child hoood - Immunizations Hx Diphtheria, Pertussis, Tetanus Vaccination: Yes Vertical Provider Document - CONSTITUTIONAL Agree With Documented VS: Yes Exam Limitations: No Limitations General Appearance: WD/WN - INFECTION CONTROL TRAVEL OUTSIDE OF THE [place] IN LAST 30 DAYS: No Course - Re-evaluation Re-evalutation: 01/03/20 16:42 AFebrile vital stable no distress. Nurses notes reviewed. pt given tetanus shot. See procedure note for suture information. To have sutures removed in 7 to 10 days, to keep dry, apply topical antibiotic ointment as directed. Monitor for any signs symptoms of redness such as infection, swelling, drainage. Wound check with primary care provider within 48 hours. After performing a Medical Screening Examination, I estimate there is LOW risk for OPEN FRACTURE, COMPARTMENT SYNDROME, TENDON RUPTURE, ACUTE NEUROVASCULAR INJURY, or RETAINED FOREIGN BODY, thus I consider the discharge disposition reasonable. Also, there is no evidence or peritonitis, sepsis, or toxicity. I have reevaluated this patient multiple times and no significant life threatening changes are noted. The patient and I have discussed the diagnosis and risks, and we agree with discharging home with close follow-up with the understanding that symptoms and presentations can change. We also discussed returning to the Emergency Department immediately if new or worsening symptoms occur. We have discussed the symptoms which are most concerning (e.g., changing or worsening pain, fever, numbness, weakness, cool or painful digits) that necessitate immediate return. - Vital Signs Vital signs: Temp Pulse Resp BP Pulse Ox 98.6 F 83 20 146/89 H 100 01/03/20 12:26 01/03/20 12:26 01/03/20 12:26 01/03/20 12:01/03/20 12:26 Procedures - Laceration/Wound Repair Left Posterior Leg Time completed: 14:25 Wound length (cm): 1.5 - cm Wound's Depth, Shape: Flap Laceration pre-procedure: Sterile PPE lexisned, Shur-Clens applied Anesthetic type: 1% Lidocaine w/epi Volume Anesthetic (mLs): 4 - mL Wound explored: Clean Irrigated w/ Saline (mLs): 300 - mL Wound Debrided: Minimal Wound Repaired With: Sutures - #6 Suture Size/Type: 5:0, Prolene Layer Closure?: No Post-procedure wound care: Sterile dressing applied Notes: 01/03/20 14:26 Verbal consent given for laceration repair. Wound explored, no foreign bodies noticed on exploration of wound. The flap sutured with #6, 5.0 Prolene sutures. patient tolerated procedure without incident. Discharge - Discharge Clinical Impression: Laceration of left calf without complication Qualifiers: Encounter type: initial encounter Qualified Code(s): S81.812A - Laceration without foreign body, left lower leg, initial encounter Condition: Stable Disposition: HOME, SELF-CARE Instructions: Antibiotic Ointment Protection ([facility]), Laceration Care ([facility]), Soap Cleansing ([facility]) Additional Instructions: Please return to your primary doctor, the ED, or an urgent care in 7 days for suture removal. Return immediately if you develop spreading redness around the wound, pus from the wound, worsening pain, or a fever of >100.4. Keep the area clean and dry. Wash gently with soap and water twice daily and cover with antibiotic ointment. Return immediately for any new or worsening symptoms. Follow up with primary care provider, call tomorrow to make followup appointment. Prescriptions: Mupirocin [Bactroban 2% Ointment 22 gm] 1 applic TP TID #1 tube Forms: Return to Work Referrals: JOHN BELTRAN DO [NO LOCAL MD] - Follow up as needed
== END 2020-01-03 14:38 | disposition home or self-care (01) ==
LOC: ER 12:18
PROC: 0HQLXZZ Repair Left Lower Leg Skin, External Approach (ICD-10-PCS; principal; 2020-01-03)
DX: S81.812A Laceration without foreign body, left lower leg, initial encounter (principal); W45.0XXA Nail entering through skin, initial encounter; J45.909 Unspecified asthma, uncomplicated
CPT/HCPCS: 99282; 90471; 90715; 12001; J3490

== ENCOUNTER 2020-06-13 12:20 | Emergency (ER) | payer SELFPAY ==
[2020-06-13] MEDS ORDERED: IBUPROFEN 800 MG TABLET PO ONE (12:45)
--- NOTE | 2020-06-13 12:46 | ER Document Report ---
HPI - HPI Patient complains to provider of: Right ankle injury Time Seen by Provider: 06/13/20 12:41 Onset: This morning Onset/Duration: Sudden Quality of pain: Achy Context: Patient states that he fell 2 steps off of his porch this morning injuring his right ankle. Patient reports rolling his right ankle. Patient denies any other injury. Exacerbated by: Standing, Movement, Walking Relieved by: Denies Similar symptoms previously: No Recently seen / treated by doctor: No - ROS ROS below otherwise negative: Yes Systems Reviewed and Negative: Yes All other systems reviewed and negative - NEURO Neurology: DENIES: Weakness - GASTROINTESTINAL Gastrointestinal: DENIES: Nausea - MUSCULOSKELETAL Musculoskeletal: REPORTS: Extremity pain, Swelling - DERM Skin Color: Normal Skin Problems: None Past Medical History - General Information source: Patient - Social History Smoking Status: Current Every Day Smoker Frequency of alcohol use: None Drug Abuse: None Occupation: [employer] Lives with: Family Family History: Reviewed & Not Pertinent - Medical History Medical History: Negative Pulmonary Medical History: Reports: Hx Asthma - Sports Induced Renal/ Medical History: Denies: Hx Peritoneal Dialysis GI Medical History: Denies: Hx Cirrhosis, Hx Gastritis, Hx Hepatitis, Hx Pancreatitis Infectious Medical History: Denies: Hx Hepatitis Past Surgical History: Reports: Hx Myringotomy - child hoood - Immunizations Hx Diphtheria, Pertussis, Tetanus Vaccination: Yes Vertical Provider Document - CONSTITUTIONAL Agree With Documented VS: Yes Exam Limitations: No Limitations General Appearance: WD/WN, No Apparent Distress - INFECTION CONTROL TRAVEL OUTSIDE OF THE [place] IN LAST 30 DAYS: No - HEENT HEENT: Atraumatic, Normocephalic - NECK Neck: Normal Inspection - RESPIRATORY Respiratory: No Respiratory Distress - CARDIOVASCULAR Pulses: Normal: Dorsalis pedis - MUSCULOSKELETAL/EXTREMETIES Musculoskeletal/Extremeties: MAEW, FROM, Tender - Right ankle joint tenderness to anterior aspect of ankle, 1+ edema to right lateral malleolar area, Edema. negative: Eccymosis - NEURO Level of Consciousness: Awake, Alert, Appropriate Motor/Sensory: No Motor Deficit, No Sensory Deficit - DERM Integumentary: Warm, Dry, No Rash Course - Re-evaluation Re-evalutation: 06/13/20 13:56 Patient's x-ray reviewed, no evidence for any acute fracture, will immobilize and refer to orthopedics for further management at this time. - Vital Signs Vital signs: Temp Pulse Resp BP Pulse Ox 98.4 F 93 20 153/92 H 97 06/13/20 12:24 06/13/20 12:24 06/13/20 12:24 06/13/20 12:24 06/13/20 12:24 - Laboratory Results Critical Laboratory Results Reviewed: No Critical Results - Radiology Results Critical Radiology Results Reviewed: No Critical Results Procedures - Immobilization Right Ankle Pre-Proc Neuro Vasc Exam: Normal Immobilizer type: Ankle stirrup Performed by: PCT Post-Proc Neuro Vasc Exam: Normal Alignment checked and good: Yes Discharge - Discharge Clinical Impression: Right ankle sprain Qualifiers: Encounter type: initial encounter Involved ligament of ankle: unspecified ligament Qualified Code(s): S93.401A - Sprain of unspecified ligament of right ankle, initial encounter Condition: Stable Disposition: HOME, SELF-CARE Instructions: Ankle Stirrup Splint ([facility]), Use of Crutches ([facility]), Ice & Elevation ([facility]), Sprained Ankle ([facility]) Additional Instructions: Return immediately for any new or worsening symptoms Followup with your primary care provider, call tomorrow to make a followup appointment Weightbearing as tolerated Follow-up with orthopedics for any persistent pain or problems Prescriptions: Naproxen [Naprosyn 250 Nmg Tablet] 1 tab PO BID #14 tablet Forms: Return to Work Referrals: [facility] [Provider Group] - Follow up as needed
--- NOTE | 2020-06-13 13:44 | RADIOLOGY REPORT (SQ) ---
EXAM DESCRIPTION: ANKLE RIGHT COMPLETE IMAGES COMPLETED DATE/TIME: 06/13/2020 1:15 pm REASON FOR STUDY: fall, rolled ankle, anterior pain COMPARISON: None. NUMBER OF VIEWS: Three views. TECHNIQUE: AP, lateral, and oblique radiographic images acquired of the right ankle. LIMITATIONS: None. FINDINGS: MINERALIZATION: Normal. BONES: No acute fracture or dislocation. No worrisome bone lesions. JOINTS: No effusions. SOFT TISSUES: No soft tissue swelling. No foreign body. OTHER: No other significant finding. IMPRESSION: NEGATIVE STUDY OF THE RIGHT ANKLE. NO RADIOGRAPHIC EVIDENCE OF ACUTE INJURY. TECHNICAL DOCUMENTATION: JOB ID: [id number] 2010 [employer]- All Rights Reserved Reading location - IP/workstation name: [email or web address]
[2020-06-13 14:36] VITALS: BP 152/90
== END 2020-06-13 14:30 | disposition home or self-care (01) ==
LOC: ER 12:20
DX: S93.401A Sprain of unspecified ligament of right ankle, initial encounter (principal); W10.9XXA Fall (on) (from) unspecified stairs and steps, initial encounter; F17.200 Nicotine dependence, unspecified, uncomplicated
CPT/HCPCS: 99283